=== PATIENT | male | born 1950 | race Asian ===

== ENCOUNTER 2018-01-18 07:57 | Day surgery (SDC) | END 2018-01-18 12:25 | disposition home or self-care (01) ==

== ENCOUNTER 2018-07-30 06:19 | Day surgery (SDC) | payer MEDICARE, BC ==
[2018-07-30] VITALS (13 sets, daily range): BP systolic 109–148; BP diastolic 63–77; PULSE 80–95; RESP 15–40
[~2018-07-30] VITALS: Ht 170.2 cm; Wt 64.0 kg
[~2018-07-30 06:19] MED LIST: AMLO-145 PO; CALC667C PO; FURO20TA3 PO; INSU100I33 SC; TAMS0.4C2 PO
[2018-07-30] MEDS ORDERED: CEFAZOLIN 1 GM INJ ONE (07:00)
[2018-07-30] MEDS ORDERED: VIT1TABL PO (07:04)
[2018-07-30] MEDS ORDERED: CLON-379 PO (07:04)
[2018-07-30] MEDS ORDERED: FURO20TA3 PO (07:04)
[2018-07-30] MEDS ORDERED: SVL800C PO (07:04)
[2018-07-30] MEDS ORDERED: FOLI-49 PO (07:06)
--- NOTE | 2018-07-30 07:19 | HPN ---
Date/Time of Note Date/Time of Note DATE: 07/30/18 TIME: 07:19 Interval H&P Admission Note Pt. seen H&P reviewed: No system changes JOCELYN CASAREZ MD Jul 30, 2018 07:19
[2018-07-30] MEDS ORDERED: GELATIN SIZE 100 SPONGE ONE (07:42)
[2018-07-30] MEDS ORDERED: THROMBIN (BOVINE) 5,000 UNIT VIAL TP ONE (07:42)
[2018-07-30] MEDS ORDERED: LIDOCAINE 1% (MPF) 30 ML INJ ONE (07:43)
[2018-07-30] MEDS ORDERED: HEPARIN 1000 UNITS/ML 10 ML INJ ONE (07:43)
[2018-07-30] MEDS ORDERED: HEPARIN 1000 UNITS/ML 10 ML INJ IRR ONE (07:45)
--- NOTE | 2018-07-30 07:57 | PREAC ---
Date/Time of Note Date/Time of Note DATE: 07/30/18 TIME: 07:56 Anesthesia Eval and Record Evaluation Time Pre-Procedure Interview DATE: 07/30/18 TIME: 07:56 Age 68 Sex male NPO: 8 hrs Preoperative diagnosis ESRD Planned procedure L AVF creation Past Medical History Past Medical History: Includes Cardio: Dyslipidemia Endo: Diabetes Renal: ESRD on dialysis Heme: Anemia Surgery & Anesthesia Issues No known issue Meds Anticoagulation: No Beta Etta within 24 hr: No Reason Beta Etta not given: Pt. not on B-Etta Reported Medications Folic Acid* (Folic Acid*) 1 Mg Tablet, 1 MG PO DAILY, TAB 07/30/18 Vit B1 Mn/B2/B3/B5/B6/B12/C/Fa (B COMPLEX WITH VITAMIN C TAB) 1 Each Tablet, 1 TAB PO DAILY, TAB 07/30/18 Sevelamer Hcl* (Renagel*) 800 Mg Tablet, 2400 MG PO WITH MEALS BEDTIME, TAB 07/30/18 Furosemide* (Furosemide*) 20 Mg Tablet, 20 MG PO DAILY, #60 TAB 07/30/18 Clonidine Hcl* (Clonidine Hcl*) 0.1 Mg Tab, 0.1 MG PO Q8, TAB 07/30/18 Insulin Glargine,Hum.rec.anlog (Basaglar Kwikpen U-100) 100 Unit/1 Ml Insuln.pen, 0 SC DAILY, EA SLIDING SCALE 01/18/18 Discontinued Reported Medications Tamsulosin Hcl* (Tamsulosin Hcl*) 0.4 Mg Cap.er.24h, 0.4 MG PO HS, CAP 01/18/18 Calcium Acetate* (Calcium Acetate*) 667 Mg Capsule, 2001 MG PO WITH MEALS, #90 CAP 01/18/18 Furosemide* (Furosemide*) 20 Mg Tablet, 20 MG PO DAILY, #60 TAB 01/18/18 Amlodipine Besylate* (Amlodipine Besylate*) 5 Mg Tablet, 5 MG PO DAILY, #30 TAB 01/18/18 Meds reviewed: Yes Allergies Coded Allergies: No Known Allergy (Unverified , 07/30/18) Allergies Reviewed: Yes Labs/Studies Labs Reviewed: Reviewed by anesthesiologist Result Diagram: 07/30/18 0640 07/30/18 0640 Laboratory Tests 07/30/18 06:40 test: N/A Studies: ECG Pre-procedure Exam Last vitals Vital Signs Date Temp Pulse Resp B/P (MAP) Pulse Ox O2 O2 Flow FiO2 Time Delivery Rate 07/30/18 98.9 95 18 147/73 96 Room Air 07:20 (97) Airway: Adequate mouth opening, Adequate thyromental dist Mallampati: Mallampati II Teeth: Normal Lung: Normal Heart: Normal ASA Physical Status ASA physical status: 3 Emergency: None Planned Anesthetic General/MAC: Mask, ETT Nerve block: Brachial plexus (left) Pre-operative Attestations Prior to commencing anesthesia and surgery, the patient was re-evaluated, there was verification of: *The patient's identity *The results of appropriate recent lab work and preoperative vital signs *The above evaluation not changing prior to induction *Anesthetic plan, risk benefits, alternative and complications discussed with patient/family; questions answered; patient/family understands, accepts and wishes to proceed. CELESTE BIRMINGHAM Jul 30, 2018 07:57
[2018-07-30] MEDS ORDERED: ONDANSETRON 4 MG INJ IV PRN (08:00)
[2018-07-30] MEDS ORDERED: METOCLOPRAMIDE 10 MG INJ IV PRN (08:00)
[2018-07-30] MEDS ORDERED: DIPHENHYDRAMINE 50 MG INJ IV PRN (08:00)
[2018-07-30] MEDS ORDERED: HYDROmorphONE 1 MG/5 ML IV SYRINGE IV PRN ×2 (08:00)
[2018-07-30] MEDS ORDERED: LABETALOL HCL 20MG INJ IV PRN (08:00)
[2018-07-30] MEDS ORDERED: ALBUTEROL 0.083% (NEB) 2.5 MG/3 ML AMP HHN PRN (08:00)
[2018-07-30] MEDS ORDERED: FENTAnyl 50 MCG/ML VIAL IV PRN ×2 (08:00)
[2018-07-30] MEDS ORDERED: MIDAZOLAM 1 MG/ML 2 ML INJ ONE (08:07)
[2018-07-30] MEDS ORDERED: ROPIVACAINE 0.5 % 30 ML VIAL ONE (08:08)
[2018-07-30] MEDS ORDERED: LIDOCAINE 1% (MPF) 30 ML INJ INJ ONE (08:25)
[2018-07-30] MEDS ORDERED: PROPOFOL 20 ML ONE (08:34)
[2018-07-30] MEDS ORDERED: LIDOCAINE 100 MG SYRINGE ONE (08:34)
--- NOTE | 2018-07-30 08:57 | SIPON ---
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
--- NOTE | 2018-07-30 10:04 | OPR ---
DATE OF OPERATION: 07/30/2018 PREOPERATIVE DIAGNOSIS: Nonmaturing left arm arteriovenous fistula. POSTOPERATIVE DIAGNOSIS: Nonmaturing left arm arteriovenous fistula. PROCEDURE PERFORMED: Left arm arteriovenous fistula revision. SURGEON: Jocelyn Weston MD ANESTHESIA: Scalene block with local. ESTIMATED BLOOD LOSS: Minimal. COMPLICATIONS: No intraprocedural complications. INDICATIONS: This is a 68-year-old gentleman with end-stage renal disease on dialysis via [facility]. He has a left arm brachiocephalic AV fistula. It is not maturing. I did a fistulogram several week s ago and found several large collateral side branches that were draining flow from the fistula and e ssentially an occlusion in the mid upper arm and the cephalic vein. I ballooned the cephalic vein an d opened it up, but because of these large tributary branches, it was still stealing blood away from the main vein, so I brought him in today to consider interposition grafting around that segment and l igation of the branches but when I looked at it the vein was patent and so it just decided to ligate the side branches. PROCEDURE: Patient was brought to the operating room, placed on the table in the supine position. L eft arm was prepped and draped in the usual sterile fashion. I had already marked the branches on th e skin that there were 2 large branches, one 3 cm above the elbow and one in the upper arm. I anesth etized over those 2 areas, made a small incision over the side branch and spots dissected down throug h the cutaneous tissue using electrocautery and then I dissected out the site of 2 large tributary br anches and ligated them with 3-0 silk ties. I then closed the skin incision with a 4-0 Monocryl subc uticular suture. Sterile dressing was applied. Patient was then transferred to the recovery room in stable condition, tolerated the procedure well without any complications. Dictated By: JOCELYN KRAMER/SAMIA Conf#: [id number] DID#: [id number] CC: ARSENIO LOPEZ MD;*EndCC*
--- NOTE | 2018-07-30 12:09 | PAC ---
Date/Time of Note Date/Time of Note DATE: 07/30/18 TIME: 12:09 Post-Anesthesia Notes Post-Anesthesia Note Last documented vital signs Vital Signs Date Temp Pulse Resp B/P (MAP) Pulse Ox O2 O2 Flow FiO2 Time Delivery Rate 07/30/18 82 24 122/71 99 Room Air 09:46 (88) 07/30/18 98.0 09:14 Activity: WNL Respiratory function: WNL Cardiovascular function: WNL Mental status: Baseline Pain reasonably controlled: Yes Hydration appropriate: Yes Nausea/Vomiting absent: Yes CELESTE BIRMINGHAM Jul 30, 2018 12:09
--- NOTE | 2018-07-30 14:14 | RADRPT ---
Vent Rate: 87 bpm RR Interval: 0 msec SC Interval: 240 msec QRS Duration: 98 msec QT Interval: 376 msec QTC Interval: 452 msec P-R-T [place]: 61 - -46 - 52 degrees Sinus rhythm with 1st degree AV block Left axis deviation Abnormal ECG Electronically Signed By: Raymond Lambert
== END 2018-07-30 10:30 | disposition home or self-care (01) ==
LOC: SDS 06:19
PROVIDERS: ATTEND Surgery Vascular Surgery
DX: T82.898A Other specified complication of vascular prosthetic devices, implants and grafts, initial encounter (principal); Y84.1 Kidney dialysis as the cause of abnormal reaction of the patient, or of later complication, without mention of misadventure at the time of the procedure; I12.0 Hypertensive chronic kidney disease with stage 5 chronic kidney disease or end stage renal disease; N18.6 End stage renal disease; E11.9 Type 2 diabetes mellitus without complications
CPT/HCPCS: 36832; 71045; 80053; 82962; 85025; 85610; 85730; 93005; J0690; J1644; J2001; J2250; J2795